=== PATIENT | male | born 1965 | race Caucasian/White ===

== ENCOUNTER 2018-03-01 10:30 | Inpatient (IN) | payer BC ==
--- NOTE | 2018-02-20 20:05 | HP ---
HISTORY AND PHYSICAL: DATE OF ADMISSION/SURGERY: 03/01/18 PROVIDER: Dr. Nita Luna.* (DICTATED BY LEONCIO TIMMONS) HISTORY OF PRESENT ILLNESS: Mr. Blanc is a 52-year-old gentleman with bilateral hip pain that is increasing over many years. His right hip hurts more than his left. Pain is a 4/10, aching, constant, made worse with walking. He has failed conservative management with NSAIDs, physical therapy, intraarticular injections. As of note, he has recently lost over 60 pounds at our urging and would like to schedule a right total hip arthroplasty. PAST MEDICAL HISTORY: 1. Morbid obesity. 2. Hypertension. 3. Hypercholesterolemia. PAST SURGICAL HISTORY: None. MEDICATIONS: 1. Meloxicam 15 mg 1 by mouth every day. 2. Amlodipine 5 mg 1 by mouth every day. 3. Hydrochlorothiazide 25 mg by mouth every day. ALLERGIES: PENICILLIN, unknown reaction. 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 He denies any tobacco, alcohol, or recreational drug use. He is normally active. He ambulates independently and is right-hand dominant. REVIEW OF SYSTEMS: General: The patient denies any fever, chills, or night sweats. No known anesthesia problems. HEENT: The patient denies any headaches , lightheadedness, or syncopal episodes. Cardiothoracic: The patient denies any chest pain, heart palpitations, or edema. Pulmonary: The patient denies any shortness of breath with exertion, chronic cough, COPD, or asthma. GI: The patient denies any nausea, vomiting, diarrhea, or constipation. : The patient denies any nocturia, urinary frequency, or urgency. MSK: The patient denies any chronic or intermittent back pain or fractures. Neuro: The patient denies any paresthesias, numbness, seizures, or stroke. Integument: The patient denies any abrasions, rashes, lumps, or open sores. PHYSICAL EXAMINATION GENERAL: The patient is alert and oriented x3, appropriate mood and affect, appropriate dress and hygiene. He has an antalgic gait and he is in no acute distress. HEENT: Normocephalic, atraumatic. Hearing and vision are grossly intact. PULMONARY: Lungs are clear to auscultation bilaterally with no wheezes, rales, or rhonchi. CARDIO: Regular rate and rhythm. Normal S1 and S2. No appreciable S3 or S4. No murmurs, rubs, or gallops. MUSCULOSKELETAL: Right lower extremity: Inspection of the right hip reveals no erythema or ecchymosis. Skin is warm, dry, and intact. There are no abrasions or open wounds. He has 70 degrees of flexion with extreme pain in the groin. External rotation to 15 degrees and internal rotation to 0 degrees. He has pain with both of those. He can actively flex and abduct the hip, but this causes him pain. He has 5/5 ankle dorsiflexion and plantarflexion strength. Full sensation to light touch. Calves are soft and nontender. 2+ dorsalis pedis pulse. IMPRESSION: Right hip severe end-stage osteoarthritis. PLAN: To the OR for a right total hip arthroplasty to be performed by Dr. Nita Luna on 03/01/18. The patient will follow up 10 to 14 days postop for followup and suture removal. The risks and complications of surgery were reviewed with the patient and he understood these. LEONCIO TIMMONS [id number]/[facility] #: [id number] SUNITA
[~2018-03-01 10:30] MED LIST: Buffered Lidocaine 0.9% SYRIN* 5 ML/SYR SYRINGE INTRADERM ONE; Lactated Ringers 1000 ML Bag* 1,000 ML IV SCH
[2018-03-01] MEDS ORDERED: Clindamycin 900 MG/D5W BAG(*) 900 MG/50 ML BAG IVPB ONE (11:01)
[2018-03-01] MEDS ORDERED: Midazolam* 1 MG/ML 5 ML VIAL (5 MG) ONE ×2 (13:07→13:39)
[2018-03-01] MEDS ORDERED: fentaNYL* 50 MCG/ML 2 ML VIAL (100 MCG VIAL) ONE ×2 (13:27→14:58)
[2018-03-01] MEDS ORDERED: Dexamethasone IV* 4 MG/ML 1 ML (4 MG) ONE (13:40)
[2018-03-01] MEDS ORDERED: fentaNYL* 50 MCG/ML 2 ML VIAL (100 MCG VIAL) IV PRN (14:03)
[2018-03-01] MEDS ORDERED: DiMENhydriNATE IV* 50 MG/ML VIAL IV PUSH PRN (14:03)
[2018-03-01] MEDS ORDERED: Scopolamine 1.5 mg* PATCH TRANSDERM PRN (14:03)
[2018-03-01] MEDS ORDERED: Acetaminophen IV 1GM/100ML * 1,000 MG/100 ML VIAL IVPB ONE (14:03)
[2018-03-01] MEDS ORDERED: oxyCODONE TAB* 5 MG TAB PO PRN ×2 (14:03→16:19)
[2018-03-01] MEDS ORDERED: HYDROmorphone INJ1* 1 MG/ML SYRINGE IV PRN (14:03)
[2018-03-01] MEDS ORDERED: Ondansetron INJ* 2 MG/ML VIAL IV PRN ×2 (14:03→16:19)
[2018-03-01] MEDS ORDERED: Naloxone* 0.4 MG/ML 1 ML VIAL IV PRN (14:03)
[2018-03-01] MEDS ORDERED: EPHEDrine (Pressors)* 50 MG/ML VIAL ONE (14:45)
[2018-03-01] MEDS ORDERED: Phenylephrine INJ* 10 MG/ML 1 ML VIAL (10 MG) ONE (14:45)
[2018-03-01] MEDS ORDERED: Bupivacaine 0.5%* 50 ML VIAL ONE (15:42)
[2018-03-01] MEDS ORDERED: Midazolam* 1 MG/ML 2 ML VIAL (2 MG) ONE (15:46)
[2018-03-01] MEDS ORDERED: Ketorolac INJ* 30 MG/ML 1 ML VIAL ONE (15:46)
[2018-03-01] MEDS ORDERED: Ondansetron INJ* 2 MG/ML VIAL ONE (15:47)
[2018-03-01] MEDS ORDERED: Bisacodyl SUPP* 10 MG SUPP PR PRN (16:19)
[2018-03-01] MEDS ORDERED: Acetaminophen TAB* 325 MG PO PRN (16:19)
[2018-03-01] MEDS ORDERED: Magnesium Hydroxide LIQ* 30 ML UDC PO PRN (16:19)
[2018-03-01] MEDS ORDERED: diPHENhydraMINE IV* 50 MG/ML 1 ml VIAL (BENADRYL) IV PRN (16:19)
[2018-03-01] MEDS ORDERED: oxyCODONE/Acetamin 5/325 MG* TAB PO PRN (16:19)
[2018-03-01] MEDS ORDERED: Cyclobenzaprine TAB* 10 MG PO PRN (16:19)
[2018-03-01] MEDS ORDERED: Morphine VIAL* 4 MG/ML VIAL (1 ml vial) IV PRN (16:19)
[2018-03-01] MEDS ORDERED: Acetaminophen IV 1GM/100ML * 100 ML ONE (16:34)
[2018-03-01] MEDS: Lactated Ringers 1000 ML Bag* 1,000 ML IV SCH (17:50)
[2018-03-01] MEDS: oxyCODONE/Acetamin 5/325 MG* TAB PO PRN (18:17)
[2018-03-01] MEDS ORDERED: amLODIPine TAB* 5 MG PO SCH (18:30)
[2018-03-01] MEDS ORDERED: Warfarin TAB(*) 6 MG PO ONE (18:30)
[2018-03-01] MEDS: Docusate CAP* 100 MG PO SCH (20:29)
[2018-03-01] MEDS: Magnesium Hydroxide LIQ* 30 ML UDC PO SCH (20:30)
[2018-03-01] MEDS: Clindamycin 600 MG IVPREMIX(* 600 MG/50 ML SDV IV SCH (21:25)
--- NOTE | 2018-03-02 01:54 | CONS ---
CC: Dr. Brar; Dr. Luna * CONSULTATION REPORT: DATE OF CONSULT: PRIMARY CARE PROVIDER: Dr. Brar. REQUESTING PHYSICIAN: Dr. Luna. REASON FOR CONSULT: Medical management of the patient's hypertension status post right hip surgery. CHIEF COMPLAINT: Right hip pain. HISTORY OF PRESENT ILLNESS: Abdulaziz Blanc is a 52-year-old male with history of obesity, hypertension, obstructive sleep apnea, who is not tolerating CPAP, who is status post right hip replacement performed by Dr. Luna today. He just walked postoperatively and he felt that his pain postoperative is similar to the pain that he had due to osteoarthritis before. The patient also noted that he has a Caro catheter in place and it was "leaking " on the bed. Otherwise, he has no other complaints. He feels good. Denies shortness of breath or chest pain. A consultation was requested for this patient to manage the patient's hypertension perioperatively. PAST MEDICAL HISTORY: 1. Hypertension. 2. Obstructive sleep apnea, the patient does not tolerate CPAP. 3. History of morbid obesity. The patient stated that he lost approximately 80 pounds in the past 1 year. 4. History of osteoarthritis. MEDICATIONS: Outpatient medications include: 1. Amlodipine 5 mg daily. 2. Acetaminophen on a p.r.n. basis. 3. Hydrochlorothiazide 25 mg daily. 4. Phentermine 30 mg daily that the patient used to be on for his weight loss and discontinued prior to surgery. ALLERGIES: PENICILLINS with unknown reaction. FAMILY HISTORY: Positive for mother with history of bilateral breast cancer as well as diabetes. Father has no known medical problems. 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 He denies any tobacco, alcohol, or drug use. He is a full code. REVIEW OF SYSTEMS: Positive for right hip pain and leaking Caro. All the remaining 12 systems were reviewed with the patient and were otherwise negative. PHYSICAL EXAM: Blood pressure of 101/58, heart rate of 100 and regular, respiratory rate 16, oxygen saturation 97% on room air, temperature 97.9. General: The patient is a pleasant 52-year-old male with a BMI of 41. The patient is not in acute distress. Alert, awake, and oriented x3. HEENT: Head : Atraumatic, normocephalic. Eyes: Pupils are equal, reactive to light and accommodation. Oropharynx is clear. Mucosa moist. Neck: Supple. No JVD. No bruits bilaterally. Cardiovascular: Regular rate and rhythm. No murmur. Respiratory: Clear to auscultation bilaterally. Abdomen: Soft, nontender. Bowel sounds present in all 4 quadrants. Extremities: There is trace bilateral pedal edema. Pulses are +2 bilaterally. No clubbing or cyanosis. On evaluation of the postoperative right hip, the postoperative dressings were not removed. There is no gross hematoma evident on evaluation of the right thigh. Neuro Evaluation: Cranial nerves II through XII grossly intact. Motor strength is 5/5 bilaterally. On evaluation of the skin, no ecchymotic areas or rashes noted. Psychiatric Evaluation: Oriented x3, but no evidence of anxiety or depression. LABORATORY DATA: None obtained today. ASSESSMENT AND PLAN: 1. The patient is postoperative day 0, status post right hip replacement that is going to be managed by Orthopedic Surgery. Due to the patient's complaints of his Caro leaking and that he is currently already ambulatory, I am going to discontinue the Caro tonight. 2. For his hypertension, currently he is normotensive and his systolic blood pressure is around low 100s. Both his amlodipine and hydrochlorothiazide are going to be held. Those will likely be restarted at discharge. 3. For DVT prophylaxis. The orthopedic service already placed the patient on enoxaparin and warfarin. 4. The patient's code status is full and his surrogate is his . TIME SPENT: Approximately 55 minutes were spent on consultation of this patient , more than half that time was spent [id number] with the patient during the interview and physical exam. Thank you very much for allowing me to see your patient in consultation. [id number]/[facility] #: [id number] SUNITA
[2018-03-02] MEDS: oxyCODONE/Acetamin 5/325 MG* TAB PO PRN ×3 (03:51→14:12)
[2018-03-02] MEDS: Lactated Ringers 1000 ML Bag* 1,000 ML IV SCH (03:54)
[2018-03-02] MEDS: Clindamycin 600 MG IVPREMIX(* 600 MG/50 ML SDV IV SCH ×2 (05:17→12:40)
[2018-03-02 05:48] LABS: Hematocrit 31 % (42-52); Hemoglobin 10.7 g/dl (14.0-18.0); Mean Platelet Volume 8.8 fL (7.4-10.4); Platelet Count 198 10^3/ul (150-450)
[2018-03-02 05:51] LABS: INR 1.06 (0.77-1.02)
[2018-03-02 06:05] LABS: BUN/Creatinine Ratio 30.2 (8-20); Calcium 8.8 mg/dL (8.6-10.3); EGFR Non-African American 93.4 (>60)
[2018-03-02] MEDS: Docusate CAP* 100 MG PO SCH (07:51)
[2018-03-02] MEDS: Magnesium Hydroxide LIQ* 30 ML UDC PO SCH (07:51)
--- NOTE | 2018-03-02 08:23 | OP ---
OPERATIVE REPORT: DATE OF OPERATION: 03/01/18 DATE OF : 65 SURGEON: Nita Luna MD. WOOD HEEL FITTER MACHINE: LEONCIO Escamilla. Mr. Villar did help throughout the procedure with preparation of the leg, wound retraction, manipulat ion of the hip, and wound closure. ANESTHESIOLOGIST: Dr. Marr. ANESTHESIA: Spinal. PRE-OP DIAGNOSIS: Severe endstage degenerative osteoarthritis of the right hip joint. POST-OP DIAGNOSIS: Severe endstage degenerative osteoarthritis of the right hip joint. OPERATIVE PROCEDURE: Right total hip arthroplasty. COMPLICATIONS: None. ESTIMATED BLOOD LOSS: 350 cc. SPECIMEN: Femoral head and acetabular reaming sent to pathology. HARDWARE USED: This is [place] uncemented total hip arthroplasty hardware. For the acetabular cup, a Tritanium cluster hole shell 58F and a single 20 mm screw. For the polyethylene, a Trident X3 0-deg ree polyethylene insert 40F. For the stem, an Accolade II, size 7 with a 127-degree neck. For the h ead a Biolox delta ceramic V40 femoral head with -2.5 adapter sleeve. BRIEF HISTORY/INDICATIONS: Mr. Blanc is a 52-year-old gentleman with years of increasingly severe right hip pain. He has failed conservative treatment with antiinflammatories, pain medication, intra articular injection, and physical therapy. Radiographs showed [id number] arthritis. Due to contin ued pain and decreased quality of life, he elected to undergo a right total hip arthroplasty. Informe d consent was obtained from the patient. He understood the risks of surgery included, but were not l imited to bleeding, infection, damage to nearby structures, continued pain, need for further surgery, intraoperative fracture, nerve palsy, hardware failure or loosening, dislocation, leg length discrep korina, stroke, heart attack, blood clot, and . He wished to proceed. INTRAOPERATIVE FINDINGS: Intraoperatively, the patient was noted to have severe contracture and loss of motion around the hip joint. He had complete loss of cartilage with deformation of the femoral h ead. He had extensive osteophyte formation. DESCRIPTION OF PROCEDURE: Erin Blanc was identified in the preanesthesia unit. His right lower extr emity was marked as the correct operative side. Informed consent was signed and placed in the chart. The patient was taken to the operating room and placed under spinal anesthesia. A Caro catheter w as placed. The patient was placed in the left lateral decubitus position with all bony prominences w ell padded. Right lower extremity was prepped and draped in the usual sterile fashion. Preop time-ou t was made to correctly identify the patient, side, and site. Appropriate perioperative antibiotics w ere given within 1 hour of incision. A standard posterior hip incision was made with 10 blade and carried down to the lateral fascia layer . The lateral fascial layer was then incised in line with the skin incision. A Charnley retractor w as placed. The piriformis and conjoint tendons were identified and elevated off the posterolateral f emur using electrocautery. These were tagged with #5 Ethibond. Next, electrocautery was used to chaya e a standard posterolateral capsular flap and this was also tagged with #5 Ethibond. The hip was car efully dislocated. Lesser troch to center of the femoral head measured 62 mm. Oscillating saw was u sed to make the femoral neck cut. The femoral head was carefully removed. The femur was retracted anteriorly. After appropriate placement of retractors, the acetabulum was we ll visualized. There was extensive osteophyte formation noted. A long handled knife was used to sha rply remove any remaining labrum from the acetabular rim. The acetabulum was sequentially reamed up to a size 57. The 57 reamer had established a bleeding subchondral bone bed. The 57 trial had excel lent fit and stability. Final implant chosen was a Tritanium cluster hole shell 58F. This was impact ed into the acetabulum without difficulty. There was excellent stability of the cup with appropriate anteversion and abduction angle. A single 20 mm screw was placed in the superoposterior quadrant fo r extra stability. Next, the liner was chosen. The final implant chosen was a Trident X3 polyethyle ne liner with 0-degree and 40F. This was impacted into the acetabulum. Stability of the liner was c hecked and rechecked and noted to be stable. Attention was next turned to preparation of the femoral canal. A canal finder was used to enter the proximal femur. The proximal femur was sequentially broached up to a size 7. A size 7 broach had ex cellent fit and stability with appropriate anteversion. A 127 neck trial with a 40+ 0 head trial was placed. Lesser troch to center of the femoral head measured 65 mm. Therefore, a -2.5 head was chos en. Lesser troch to center of the femoral head measured 62 mm. The hip was reduced and taken through a range of motion. The hip was stable in all positions. There was good soft tissue tension and germania ropriate leg length. The hip was dislocated. All trials were removed. Final implant chosen was an Accolade II, size 7 with a 127-degree neck angle. This was impacted into the femoral canal without difficulty. The stem was stable with appropriate anteversion. A Biolox d elta ceramic V40 femoral head was chosen with - 2.5 adapter sleeve. This was impacted onto the femor al neck. The hip was reduced and taken through a range of motion. The hip was stable in all positio ns with good soft tissue tension and appropriate leg lengths. The wound was copiously irrigated with sterile saline. The previously tagged tendons and capsules were reapproximated to the posterolateral femur through 2 trochanteric drill holes. Lateral fascia layer was closed using interrupted #1 Vicryls. The rest of the incision was closed in a layered fashion using 0 and 2-0 Vicryls. Skin was closed using running 3-0 Monocryl suture. This was covered with Dermabond. Sterile Adaptic, 4x4s, and paper tape were u sed to cover the incision. The patient's anesthesia was reversed without difficulty. She was taken to the PACU in stable condition. Intended weightbearing will be weightbearing as tolerated. Intende d DVT prophylaxis will be Eliqutashi. [id number]/[facility] #: [id number]
--- NOTE | 2018-03-02 08:47 | PN ---
Progress Note - Progress Note Date of Service: 03/03/18 SOAP: Subjective: []Patient seen OOB in chair, family member present. He feels he did well with therapy and his pain is under good control with Percocet. He feels he would like to go home this afternoon. Objective: [] Vital Signs Temp 98.4 F 03/02/18 08:04 Pulse 88 03/02/18 07:28 Resp 18 03/02/18 07:52 BP 121/64 03/02/18 07:28 Pulse Ox 100 03/02/18 07:28 Intake & Output 03/01/18 03/02/18 03/02/18 18:59 06:59 18:59 Intake Total 3300 2232 Output Total 200 500 Balance 3100 1732 Weight 302 lb Intake: IV Fluids 3300 932 CLINDAMYCIN 900 MG 50 LR 3250 932 Oral 1300 Output: Urine 250 Caro 200 250 Laboratory Results - last 24 hr 03/02/18 03/02/18 03/02/18 05:31 05:31 05:31 Hgb 10.7 L Hct 31 L Plt Count 198 MPV 8.8 INR (Anticoag Therapy) 1.06 H Sodium 133 L Potassium 4.0 Chloride 102 Carbon Dioxide 23 Anion Gap 8 BUN 26 H Creatinine 0.86 Est GFR ( Amer) 113.0 Est GFR (Non-Af Amer) 93.4 BUN/Creatinine Ratio 30.2 H Glucose 113 H Calcium 8.8 Right hip dressings are dry and intact, removed, wound benign, 4x4s and tape applied. thigh swelling minimal, soft calf NT and soft active DF/PF right ankle sensation intact distally Assessment: []s/p Right total hip arthroplasty POD #1 Plan: []PT/OT today, WBAT RLE Eliquis for DVT prophylaxis at discharge Follow up in 10-14 days as scheduled with Dr. Luna
[2018-03-02] MEDS ORDERED: Hydrochlorothiazide TAB* 25 MG PO SCH (09:00)
--- NOTE | 2018-03-02 11:25 | DS ---
AMENDED REPORT NOW INCLUDES DESIGNATED COSIGNER DISCHARGE SUMMARY: DATE OF ADMISSION: 03/01/18 DATE OF DISCHARGE: 03/02/18 ATTENDING PHYSICIAN: Dr. Nita Luna.* (DICTATED BY LEONCIO FUENTES) ADMISSION DIAGNOSIS: Severe end-stage degenerative osteoarthritis of the right hip. DISCHARGE DIAGNOSIS: Severe end-stage degenerative osteoarthritis of the right hip. SURGERY PERFORMED: Right total hip arthroplasty. HOSPITAL COURSE: The patient is a 52-year-old male who developed increasingly severe right hip pain over several years. He failed conservative management with antiinflammatories, pain medication, intraarticular cortisone injections and physical therapy. His plain films revealed bone on bone degenerative arthritis. Due to increased pain and decreased quality of life, the patient decided to proceed with right total hip arthroplasty. He was taken to the operating room under the care of Dr. Nita Luna on the date of 03/01/18. He tolerated the procedure well and left the operating room in stable condition. Postoperatively, he progressed very well with his physical therapy and occupational therapy goals, bearing weight as tolerated on the right lower extremity. He had no postoperative complications and felt he was doing well enough to go home on postop day 1 evening. He will have visiting home nursing services in place. PHYSICAL EXAMINATION: At the time of discharge, reveals a well healing right hip incision. His dressings were changed today. His calf is soft and nontender. His neurovascular status is intact. Vital signs show temperature of 98.4, pulse 99, respiratory rate 17, O2 saturations of 100% on room air, BP 121/64. PLAN: The patient will be discharged to home after his afternoon physical therapy session today, 03/02/18. He will use Eliquis 2.5 mg p.o. b.i.d. for 30 days for DVT prophylaxis. He was provided with a prescription of Percocet 5/ 325 one to two tablets p.o. q.4 hours p.r.n. pain and Flexeril 5 mg p.o. t.i.d. p.r.n. muscle spasm. All of these medications were sent to the bedside with [facility], Meds to Beds service. He will follow up as scheduled in the office with Dr. Luna in roughly 10 to 14 days. All questions were answered. LEONCIO FUENTES [id number]/[facility] #: [id number] [facility]PITAL[facility]avier
[2018-03-02 11:26] VITALS: BP 116/67
[2018-03-02] MEDS ORDERED: Enoxaparin(*) 40 MG/0.4 ML SYR SUBCUT SCH (12:00)
== END 2018-03-02 14:40 | disposition home health service (06) | DRG 301 ==
LOC: AA 10:30 → SSU 16:19
PROVIDERS: ADMIT Orthopaedic Surgery Adult Reconstructive Orthopaedic Surgery; ATTEND Orthopaedic Surgery Adult Reconstructive Orthopaedic Surgery
PROC: 0SR904A Replacement of Right Hip Joint with Ceramic on Polyethylene Synthetic Substitute, Uncemented, Open Approach (ICD-10-PCS; principal; 2018-03-01 12:45)
DX: M16.11 Unilateral primary osteoarthritis, right hip (principal); Z68.41 Body mass index [BMI] 40.0-44.9, adult; E66.01 Morbid (severe) obesity due to excess calories; I10 Essential (primary) hypertension; M24.551 Contracture, right hip; M25.751 Osteophyte, right hip; E78.00 Pure hypercholesterolemia, unspecified; G89.29 Other chronic pain; M54.41 Lumbago with sciatica, right side; E03.9 Hypothyroidism, unspecified; G47.33 Obstructive sleep apnea (adult) (pediatric); Z83.3 Family history of diabetes mellitus; Z80.3 Family history of malignant neoplasm of breast; Z88.0 Allergy status to penicillin
CPT/HCPCS: 36415; 72170; 80048; 85014; 85018; 85049; 85610; A9270-GY; J1100; J1650; J1885; J2250; J2405; J3010

== ENCOUNTER 2019-02-25 08:43 | Inpatient (IN) | payer BC ==
--- NOTE | 2019-02-18 12:31 | HP ---
HISTORY AND PHYSICAL: DATE OF ADMISSION/SURGERY: 02/25/19 DATE OF OFFICE VISIT: 02/17/19 SURGEON: Nita Luna MD * (DICTATED BY LEONCIO DANIELSON) PROCEDURE: Left total hip arthroplasty. CHIEF COMPLAINT: Left hip pain. HISTORY OF PRESENT ILLNESS: Mr. Blanc is a 53-year-old gentleman with continued complaints of left hip pain. He has failed conservative treatment and elected to proceed with a left total hip arthroplasty. PAST MEDICAL HISTORY: Hypertension, high cholesterol. PAST SURGICAL HISTORY: Right total hip arthroplasty. CURRENT MEDICATIONS: 1. Amlodipine 5 mg a day. 2. Hydrochlorothiazide 25 mg a day. ALLERGIES: PENICILLIN. FAMILY HISTORY: Cancer. SOCIAL HISTORY: A 53-year-old gentleman lives with his . He does not smoke , use drugs, or alcohol. REVIEW OF SYSTEMS: A complete 14-point review of systems was reviewed with the patient and is all negative and noncontributory. PHYSICAL EXAMINATION GENERAL: He is well developed, well nourished, in no acute distress. VITAL SIGNS: He stands 6 feet tall, weighs 320 pounds, blood pressure is 138/82 , heart rate is 76. HEENT: Normocephalic, atraumatic. NECK: Supple. No palpable lymph nodes. PULMONARY: Lungs are clear to auscultation bilaterally. CARDIO: Regular rate and rhythm. Strong S1 and S2. ABDOMEN: Soft, nontender, nondistended. NEUROLOGICAL: He is alert and oriented x3. MUSCULOSKELETAL: Left lower extremity: Skin is intact. There are no open wounds or abrasions. He walks with an antalgic type gait favoring his left hip. He has 80 degrees of hip flexion. He lags 10 degrees to neutral. He has 0 degrees of internal rotation, 20 degrees of external rotation. He is able to dorsiflex and plantar flex. He has 2+ dorsalis pedis pulses. Intact sensation. ASSESSMENT AND PLAN: Mr. Blanc is 53-year-old gentleman with end-stage osteoarthritis of the left hip. He has failed conservative treatment and elected to proceed with a left total hip arthroplasty. The surgery is scheduled for 02/25/[address] Luna discussed the risks and benefits of the surgery at today's visit and all of his questions were answered. He will follow with Dr. Jeremy 2 weeks after the surgery. LEONCIO DANIELSON [id number]/[facility] #: [id number] SUNITA
[~2019-02-25 08:43] MED LIST changes: -Buffered Lidocaine 0.9% SYRIN* 5 ML/SYR SYRINGE INTRADERM ONE; +Buffered Lidocaine 1% SYRIN* 1 ML/SYRINGE INTRADERM ONE; +Tranexamic Acid 1,000 MG in NS 0.9% 50 ML* (outpatient use) IV SCH
[2019-02-25] MEDS ORDERED: ceFAZolin 1 GM ADVAN(*) 1 GM ADDV.VIAL IVPB ONE (09:22)
[2019-02-25] MEDS ORDERED: Buffered Lidocaine 1% SYRIN* 1 ML/SYRINGE INTRADERM ONE (09:23)
[2019-02-25] MEDS ORDERED: ceFAZolin 2 GM in NS PREMIX(*) 2 GM/100 ML BAG IVPB ONE (09:23)
[2019-02-25] MEDS ORDERED: Midazolam* 1 MG/ML 5 ML VIAL (5 MG) ONE (10:33)
[2019-02-25] MEDS ORDERED: fentaNYL* 50 MCG/ML 2 ML VIAL (100 MCG VIAL) ONE (10:33)
[2019-02-25] MEDS ORDERED: Propofol* 10 MG/ML 20 ML BTL ONE ×2 (11:35→13:01)
[2019-02-25] MEDS ORDERED: Bupivacaine 0.5% SDV PF* 30ML VIAL ONE (11:54)
[2019-02-25] MEDS ORDERED: Phenylephrine 40 MCG/ML SYRINGE ONE (11:59)
[2019-02-25] MEDS ORDERED: EPHEDrine (Pressors)* 50 MG/ML VIAL ONE (12:21)
[2019-02-25] MEDS ORDERED: HYDROcodone/ACETAMIN 5-325 MG* 1 TAB PO PRN (13:12)
[2019-02-25] MEDS ORDERED: Naloxone* 0.4 MG/ML 1 ML VIAL IV PRN (13:12)
[2019-02-25] MEDS ORDERED: HYDROmorphone INJ1* 1 MG/ML SYRINGE IV PRN (13:12)
[2019-02-25] MEDS ORDERED: Acetaminophen TAB* 325 MG PO PRN ×2 (13:12→14:36)
[2019-02-25] MEDS ORDERED: Ondansetron INJ* 2 MG/ML VIAL IV PRN ×2 (13:12→14:36)
[2019-02-25] MEDS ORDERED: Cyclobenzaprine TAB* 10 MG PO PRN (14:36)
[2019-02-25] MEDS ORDERED: Ondansetron ODT TAB* 4 MG PO PRN (14:36)
[2019-02-25] MEDS ORDERED: oxyCODONE/Acetamin 5/325 MG* TAB PO PRN (14:36)
[2019-02-25] MEDS ORDERED: Morphine INJ* 2 MG/ML 1 ML SYRINGE (TWO MG - NEW SYRINGE VERSION) IV PRN (14:36)
[2019-02-25] MEDS ORDERED: diPHENhydraMINE PO* 25 MG PO PRN (14:36)
[2019-02-25] MEDS ORDERED: Magnesium Hydroxide LIQ* 30 ML UDC PO PRN (14:36)
[2019-02-25] MEDS ORDERED: diPHENhydraMINE IV* 50 MG/ML 1 ml VIAL (BENADRYL) IV PRN (14:36)
[2019-02-25] MEDS ORDERED: Calcium Carbonate CHEW TAB* 500 MG (TUMS) PO PRN (14:42)
[2019-02-25] MEDS ORDERED: Lactated Ringers 1000 ML Bag* 1,000 ML IV SCH (15:00)
[2019-02-25] MEDS ORDERED: HYDROcodone/ACETAMIN 5-325 MG* 1 TAB ONE (15:18)
--- NOTE | 2019-02-25 17:14 | PN ---
Progress Note - Progress Note Date of Service: 02/25/19 Note: OOB to chair, pain well controlled. Patient already walked halls, doing very well; 2+ DP pulse, intact sensation; dressing c/d/i
[2019-02-25] MEDS: oxyCODONE TAB* 5 MG TAB PO PRN (17:42)
[2019-02-25] MEDS ORDERED: amLODIPine TAB* 5 MG PO SCH ×2 (18:00→21:00)
--- NOTE | 2019-02-25 19:09 | OP ---
Operative Report - Blank - Operative Report Date of Operation: 02/25/19 Note: REGINALDO SOTO 1965 Date Of Surgery: 02/25/19 Nita Luna MD Electric Power Line Repairer: Tung FANG did help throughout the procedure with preparation of the hip, wound retraction, manipulation of the hip, and wound closure. Anesthesiologist: Dr. Basilio Anesthesia Type: Spinal Preoperative Diagnosis: Left severe degenerative osteoarthritis of the hip Postoperative Diagnosis: As above Procedure Performed: Left Total Hip Arthroplasty with modifier for morbid obesity/complexity of case with added time Complications: None Specimen: Femoral head and acetabular reamings sent to pathology. Hardware used: This is uncemented Michaela total hip arthroplasty hardware for the femur a size 8 accolade II with 127 neck angle femoral component, for the acetabulum a size 56F trident II tritanium cluster hole shell, a single 20 mm screw, for the insert a size 40F trident X3 polyethylene insert, and for the femoral head a size 40 - 2.5 biolox ceramic V40 femoral head. Brief history/Indication: REGINALDO SOTO was known in clinic and had a history of severe left hip pain. He failed conservative treatment with anti- inflammatories, pain pills, intra-articular injections and physical therapy. He elected to undergo left total hip arthroplasty due to continued pain and decreased quality of life. Radiographs showed severe end stage osteoarthritis of the hip with bone on bone contact. Informed consent was obtained from the patient. He understood the risks of surgery included but were not limited to: bleeding, infection, damage to nearby structures, intraoperative fracture, nerve palsy, failure of the hardware, early loosening, stiffness or loss of motion, dislocation, leg length discrepancy, anesthesia complications, stroke, heart attack, blood clot and . He wished to proceed. Intra-Operative findings: Intraoperatively the patient was noted to have severe loss of cartilage of the acetabulum and femoral head. Due to the patient's body habitus, at least 45 minutes additional operative time was added to the case. Description of the Procedure: REGINALDO SOTO was identified in the preanesthesia unit. His left hip was marked as the correct operative side. Informed consent was signed and placed in the chart. The patient was taken to the operating room and placed under anesthesia without complication. A trevizo catheter was placed. The patient was placed on the peg board with all bony prominences well padded. The left lower extremity was prepped and draped in the usual sterile fashion. Preoperative time -out was made to correctly identify the patient, side and site. Appropriate intraoperative antibiotics were given within one hour of incision. A standard posterior incision was made and carried sharply down to the lateral fascia. There was at least 6 cm of subcutaneous fat. A new 10 blade was used to make an incision in the fascia in line with the skin incision. A charnley retractor was placed. The piriformis and conjoined tendons were identified and elevated off the posterolateral femur using electrocautery. These were tagged with number 5 Ethibond. Next electrocautery was used to make a posterolateral capsular flap and this was tagged with number 5 Ethibonds. The entire exposure was made more complex due to the patient's morbidly obese body habitus. The hip was carefully dislocated. Lesser trochanter to the center of the femoral head was measured at 65 mm. The oscillating saw was used to make the femoral neck cut. The femoral head was carefully removed. The femur was retracted anteriorly and the acetabular retractors were placed. Long-handled knife was used to sharply remove any remaining labrum from the acetabular rim. The acetabulum was sequentially reamed up to a size 56. A bleeding subchondral bone bed was obtained. A trial liner was placed and had excellent fit and stability. A 56F cup with one screw was placed and had excellent stability with appropriate anteversion and abduction angle. A size 40F polyethylene liner was impacted into the acetabular shell. The liner was checked for stability and was stable. Next attention was turned to preparation of the femoral canal. A canal finder was used to enter the proximal femur. The femoral canal was sequentially broached up to a size 8 femoral broach trial. A trial neck and 40 - 2.5 trial femoral head was chosen. Lesser trochanter to center of the femoral head measurement was satisfactory. The hip was reduced and taken through a range of motion. The hip was stable in all positions with good soft tissue tension and appropriate leg lengths. The hip was dislocated and all trials were removed. The final implant chosen was a accolade size 8. This stem was impacted into the femoral canal without difficulty. The stem was stable with appropriate anteversion. The femoral head chosen was a 40 - 2.5 ceramic head. The head was impacted onto the femoral neck without difficulty. The final lesser trochanter to center of the femoral head measurement was satisfactory. The hip was reduced and taken through a range of motion. The hip was stable in all positions with good soft tissue tension and appropriate leg lengths. The hip was copiously irrigated with sterile saline. The previously tagged capsule and tendons were repaired to the posterolateral femur through two trochanteric drill holes. The lateral fascia layer was closed using number 1 vicryls. The rest of the incision was closed in a layered fashion using 0 and 2-0 vicryls. The skin was closed using 3-0 monocryl suture and Dermabond. Closure of the wound was complex due to the length and the adipose layers. Sterile adaptic, 4x4s and paper tape was used to cover the incision. The patients anesthesia was reversed without difficulty. He was taken to the PACU in stable condition. Intended weight-bearing will be as tolerated with posterior hip precautions.
--- NOTE | 2019-02-25 19:15 | CONS ---
CONSULTATION REPORT: DATE OF CONSULT: 02/25/19 CONSULTING PROVIDER: Faisal Dietz MD REQUESTING SERVICE/PRIMARY: Dr. Luna of Orthopedics. REASON FOR CONSULT: Medical co-morbidities in the setting of elective left total hip replacement, namely hypertension. HISTORY OF PRESENT ILLNESS: Abdulaziz Blanc is a 53-year-old male with past medical history of hypertension; hyperlipidemia; hip osteoarthritis, status post right total hip and now left total hip today. He has been recuperating well, complaining of approximately 5/10 pain, has been ambulating already. He still has a Caro catheter. He has been on antihypertensive medications since April 2017. He held his medications this a.m. Blood pressures have been in the 130s to 140s post surgery. MEDICATIONS: Include: 1. Amlodipine 5 mg daily. 2. Hydrochlorothiazide 25 mg p.o. daily. ALLERGIES: PENICILLIN. FAMILY HISTORY: Cancer. SOCIAL HISTORY: The patient is a nonsmoker, never a drinker. Works in construction, does not get any chest pains or shortness of breath with that. REVIEW OF SYSTEMS: A complete 14-point review of systems negative except as per HPI. He does snore and has fractured sleep due to hip pain. No stomach pain. No fevers, chills, nausea, vomiting, or diarrhea. PHYSICAL EXAM: General Appearance: No acute distress. Vital Signs: Temperature 97.0, heart rate 82, pulse ox 99%, blood pressure 141/89. HEENT: Normocephalic , atraumatic. Pupils are equal, round, and reactive to light. Extraocular motions intact. No scleral icterus. Lungs: Clear to auscultation bilaterally with no wheezing, rales, or rhonchi. Cardiovascular: Regular rate and rhythm. No murmurs, rubs, or gallops. Abdomen: Soft, nontender, nondistended. Extremities: Warm, well perfused. No peripheral edema. There is an incision with clean, dry, and intact bandages on the left hip. No significant hematoma observed. DIAGNOSTIC STUDIES/LAB DATA: Labs: None. Imaging: Pelvis x-ray demonstrated postoperative changes. Hip x-ray: Also postoperative changes. ASSESSMENT AND PLAN: Abdulaziz Blanc is a 53-year-old male with past medical history of hypertension and hyperlipidemia (diet controlled), on amlodipine and hydrochlorothiazide, recuperating well from his elective left total hip replacement. We would recommend continuing his amlodipine 5 mg tonight and holding his hydrochlorothiazide for now in the setting of pain medications, but can restart in the a.m. other management of postoperative pain control, DVT prophylaxis, and bowel regimen as per Orthopedics. He is notably on Eliquis 2.5 mg p.o. b.i.d. I do recommend the patient if he still has fractured sleep at night even after his left total hip replacement to pursue a sleep study given his snoring and neck girth, his BMI is 43.6, to rule out sleep apnea. Thank you for this interesting consult. [id number]/[facility] #: [id number] SUNITA
[2019-02-25] MEDS: Clindamycin 600 MG/D5W BAG(*) 600 MG/50 ML BAG IV SCH (20:46)
[2019-02-25] MEDS: oxyCODONE/Acetamin 5/325 MG* TAB PO PRN (21:15)
[2019-02-25] MEDS: Docusate CAP* 100 MG PO SCH (21:16)
[2019-02-25] MEDS: Magnesium Hydroxide LIQ* 30 ML UDC PO SCH (21:17)
[2019-02-26] MEDS: oxyCODONE TAB* 5 MG TAB PO PRN ×2 (00:33→08:29)
[2019-02-26] MEDS: oxyCODONE/Acetamin 5/325 MG* TAB PO PRN ×2 (04:12→11:53)
[2019-02-26] MEDS: Clindamycin 600 MG/D5W BAG(*) 600 MG/50 ML BAG IV SCH ×2 (04:14→11:54)
[2019-02-26 06:29] LABS: Hematocrit 33 % (42-52); Hemoglobin 11.5 g/dL (14.0-18.0); Mean Platelet Volume 8.2 fL (7.4-10.4); Platelet Count 169 10^3/uL (150-450)
[2019-02-26 06:43] LABS: BUN/Creatinine Ratio 20.3 (8-20); Calcium 8.4 mg/dL (8.6-10.3); EGFR African American 124.1 (>60); EGFR Non-African American 102.6 (>60); Potassium 3.4 mmol/L (3.5-5.0)
--- NOTE | 2019-02-26 08:25 | PN ---
Progress Note - Progress Note Date of Service: 02/26/19 SOAP: Subjective: []Pt seen at bedside. He feels well without CP, SOB, dizziness or nausea. Hip pain is well controlled. He will have radiation this afternoon for heterotopic ossification, Pelvis CT was done this morning. Objective: []Gen: NAD, appears well LLE: Dressing CDI, thigh soft, DF/PF intact, DP2+, sensation intact to light touch distally Calves supple and nontender without erythema, edema or palpable cords Assessment: []Left total hip replacement Plan: []WBAT PT/OT Posterior hip precautions repeat BMP tomorrow for hyponatremia, hypokalemia. Held HCTZ, can be restarted by medicine as appropriate. Potassium 20 meq q 12 hr. Vital Signs Temp 99 F 02/26/19 08:30 Pulse 90 02/26/19 08:30 Resp 16 02/26/19 08:30 BP 142/82 02/26/19 08:30 Pulse Ox 96 02/26/19 08:30 Intake & Output 02/25/19 02/26/19 02/26/19 18:59 06:59 18:59 Intake Total 3060 1300 Output Total 375 1000 Balance 2685 300 Weight 321 lb 6.4 oz Intake: IV Fluids 2700 LR 2700 Oral 360 1300 Output: Caro 225 1000 Estimated Blood Loss 150 Other: # Bowel Movements 0 Laboratory Last Values Hgb 11.5 g/dL (14.0-18.0) L 02/26/19 06:19 Hct 33 % (42-52) L 02/26/19 06:19 Plt Count 169 10^3/uL (150-450) 02/26/19 06:19 MPV 8.2 fL (7.4-10.4) 02/26/19 06:19 Sodium 132 mmol/L (135-145) L 02/26/19 06:19 Potassium 3.4 mmol/L (3.5-5.0) L 02/26/19 06:19 Chloride 100 mmol/L (101-111) L 02/26/19 06:19 Carbon Dioxide 26 mmol/L (22-32) 02/26/19 06:19 Anion Gap 6 mmol/L (2-11) 02/26/19 06:19 BUN 16 mg/dL (6-24) 02/26/19 06:19 Creatinine 0.79 mg/dL (0.67-1.17) 02/26/19 06:19 Est GFR ( Amer) 124.1 (>60) 02/26/19 06:19 Est GFR (Non-Af Amer) 102.6 (>60) 02/26/19 06:19 BUN/Creatinine Ratio 20.3 (8-20) H 02/26/19 06:19 Glucose 115 mg/dL (70-100) H 02/26/19 06:19 Calcium 8.4 mg/dL (8.6-10.3) L 02/26/19 06:19 Blood Type O Positive 02/25/19 09:46 Antibody Screen Negative 02/25/19 09:46
[2019-02-26] MEDS: Magnesium Hydroxide LIQ* 30 ML UDC PO SCH (08:30)
[2019-02-26] MEDS: Docusate CAP* 100 MG PO SCH (08:30)
[2019-02-26] MEDS ORDERED: Vitamin THERAPEUTIC TAB PO SCH (09:00)
[2019-02-26] MEDS ORDERED: Potassium Chlor TAB* 20 MEQ TAB.ER PO SCH (09:00)
[2019-02-26] MEDS ORDERED: Hydrochlorothiazide TAB* 25 MG PO SCH (09:00)
[2019-02-26] MEDS ORDERED: Apixaban* 2.5 MG TAB PO SCH (09:00)
--- NOTE | 2019-02-26 14:41 | PN ---
Subjective Date of Service: 02/26/19 Interval History: Pt currently off the floor for radiation treatment. K 3.4, Na 132. His hydrochlorothiazide 25mg was held, got amlodipine 5. BP 142/ 82. Pt wanting to be discharged. Would hold HCTZ until can follow-up with PCP. Continue amlodipine. Objective Active Medications: Acetaminophen (Tylenol Tab*) 650 mg PO Q8HR PRN PRN Reason: MILD PAIN or TEMP > 100.4 Amlodipine Besylate (Norvasc Tab*) 5 mg PO 2100 [facility] Last Admin: 02/25/19 21:16 Dose: 5 mg Apixaban (Eliquis*) 2.5 mg PO BID [facility] Last Admin: 02/26/19 08:30 Dose: 2.5 mg Bisacodyl (Dulcolax Supp*) 10 mg FL DAILY PRN PRN Reason: CONSTIPATION Calcium Carbonate (Tums*) 500 mg PO BID PRN PRN Reason: INDIGESTION Cyclobenzaprine HCl (Flexeril Tab*) 10 mg PO Q6H PRN PRN Reason: SPASMS Diphenhydramine HCl (Benadryl Iv*) 25 mg IV Q6H PRN PRN Reason: PRURITIS Diphenhydramine HCl (Benadryl Po*) 25 mg PO Q6H PRN PRN Reason: PRURITIS Docusate Sodium (Colace Cap*) 100 mg PO BID [facility] Last Admin: 02/26/19 08:30 Dose: 100 mg Lactated Ringer's (Lactated Ringers 1000 Ml Bag*) 1,000 mls @ 100 mls/hr IV PER RATE [facility] Last Admin: 02/26/19 02:47 Dose: 100 mls/hr Lactulose (Lactulose*) 30 ml PO BID PRN PRN Reason: CONSTIPATION Magnesium Hydroxide (Milk Of Magnesia Liq*) 30 ml PO BID [facility] Last Admin: 02/26/19 08:30 Dose: 30 ml Magnesium Hydroxide (Milk Of Magnesia Liq*) 30 ml PO Q6H PRN PRN Reason: CONSTIPATION Morphine Sulfate (Morphine Inj (Syringe))*) 2 mg IV Q4H PRN PRN Reason: Pain - Unrelieved Multivitamins (Theragran Tab*) 1 tab PO DAILY [facility] Last Admin: 02/26/19 08:30 Dose: 1 tab Ondansetron HCl (Zofran Inj*) 4 mg IV Q6H PRN PRN Reason: NAUSEA Ondansetron HCl (Zofran Odt Tab*) 4 mg PO Q6H PRN PRN Reason: NAUSEA Oxycodone HCl (Roxycodone Tab*) 10 mg PO Q4H PRN PRN Reason: Pain - Breakthrough Last Admin: 02/26/19 08:29 Dose: 10 mg Oxycodone/Acetaminophen (Percocet 5/325 Tab*) 1 tab PO Q4H PRN PRN Reason: PAIN - MODERATE Oxycodone/Acetaminophen (Percocet 5/325 Tab*) 2 tab PO Q4H PRN PRN Reason: PAIN - SEVERE Last Admin: 02/26/19 11:53 Dose: 2 tab Potassium Chloride (Klor Con Er Tab*) 20 meq PO BID [facility] Last Admin: 02/26/19 09:50 Dose: 20 meq Vital Signs - 8 hr 02/26/19 02/26/19 02/26/19 08:00 08:29 08:30 Temperature 99 F Pulse Rate 90 Respiratory 16 18 16 Rate Blood Pressure 142/82 (mmHg) O2 Sat by Pulse 96 96 Oximetry 02/26/19 02/26/19 02/26/19 11:53 12:01 14:32 Temperature 97.7 F Pulse Rate 91 Respiratory 18 16 18 Rate Blood Pressure 126/72 (mmHg) O2 Sat by Pulse 95 Oximetry Oxygen Devices in Use Now: None Result Diagrams: 02/26/19 06:19 02/26/19 06:19 Assess/Plan/Problems-Billing Assessment:
[2019-02-26 16:03] VITALS: BP 129/71
--- NOTE | 2019-02-26 16:21 | DS ---
Orthopedic Discharge Summary - Discharge Summary Date of Admission:02/25/19 Date of Discharge: 02/26/19 Date of Surgery: 02/25/19 Attending Orthopedic Provider: Dr uLna Pre-operative Diagnosis: Left hip osteoarthritis Operative Procedure: left total hip replacement Disposition of Patient: home with outpatient PT Condition of Patient: stable History: REGINALDO SOTO is a 53 year old M with years of increasingly severe left hip pain. Patient has failed conservative management and has elected to undergo a left total hip replacement Hospital Course: REGINALDO was admitted to [facility] on 02/25/19. Patient underwent a left total hip replacement without complication followed by a brief recovery in PACU and transfer to the Short Stay Surgical Unit in stable condition. Our hospitalist service, physical therapy and occupational therapy also participated in this patients care. Post-op day 1: patient was alert and in no acute distress. Dressing was clean, dry and intact. Operative extremity dorsiflexion and plantarflexion intact, sensation intact to light touch distally , DP2+. Prior to DC: dressing was changed, incision was clean, dry and intact. Patient was deemed to be medically and orthopedically stable for discharge. Physical therapy goals were met. Per medicine he is to hold his hydrocholorothiazide until follow up with his PCP which should be within 1 week for BP check, repeat BMP in 1 week. Home Medications Medication Instructions Recorded Confirmed Type Hydrochlorothiazide TAB* 25 mg PO QAM 02/19/18 02/25/19 History Hydrodiuril TAB* amLODIPine TAB* [Norvasc 5 mg TAB*] 5 mg PO QPM 02/19/18 02/25/19 History Calcium Carbonate CHEW TAB* [Tums*] 500 mg PO BID PRN 02/17/19 02/25/19 History Acetaminophen TAB* [Tylenol TAB*] 650 mg PO Q8HR PRN tab 02/26/19 Rx Apixaban* [Eliquis*] 2.5 mg PO BID #60 tab 02/26/19 Rx Docusate CAP* [Colace Cap*] 100 mg PO BID PRN #90 cap 02/26/19 Rx oxyCODONE/Acetamin 5/325 MG* 1 tab PO Q4H PRN tab 02/26/19 Rx [Percocet 5/325 TAB*] oxyCODONE/Acetamin 5/325 MG* 2 tab PO Q4H PRN #70 tab MDD 10 02/26/19 Rx [Percocet 5/325 TAB*] Discharge Instructions following Orthopedic Surgery: Activity: * Weight Bearing as tolerated * Continue physical therapy and occupational therapy exercises as shown * Start outpatient physical therapy Hip replacements: Continue Hip Precautions- do not cross legs or bend greater than 90 degrees/squat Wound care: * OK to shower on post-op day 3, no bathing, swimming, or submerging wound. * Use gentle soap, pat dry. Cover with gauze, AAYUSH wrap or tape. Call Orthopedic office for: * Increased drainage * Redness * Increased pain * Fever Go to ER with shortness of breath or chest pain. Diet: * Regular diet * Increase fluids and fiber to prevent constipation. * Continue to use stool softeners, call office if no bowel motion within 48 hours. Medications See Home Medication List in your packet for medications that you should take after discharge. DVT Prophylaxis: Eliquis Dosin.5 mg, 1 tab every 12 hours x 30 days. Increases bleeding risk Pain Control: Percocet Dosin/325 mg 1-2 tabs by mouth every 4-6 hours as needed for pain. Maximum of 10 tabs per day. WEan off as soon as pain allows, hold for sedation Please note that Percocet contains Tylenol (acetaminophen). Maximum daily dose of Tylenol is 4000 mg from all sources. Antibiotics are required prior to any dental work. Hold your hydrochlorothiazide until you follow up with your primary care doctor. Repeat BMP in 1 week at the outpatient lab FOLLOW UP: Follow up with [Jeremy] Within 10-14 days, call for appointment Please call our office with any questions or concerns ([phone]) Rx [facility]
--- NOTE | 2019-02-27 01:34 | RADMED ---
CC: Dr. Pratima Luna.* RADIATION ONCOLOGY CONSULTATION NOTE: DATE OF SERVICE: 02/26/19 - Inpatient, ROOM #[id number] REFERRING PHYSICIAN: Dr. Nita Luna. DIAGNOSIS: Heterotopic ossification prophylaxis. HISTORY OF PRESENT ILLNESS: Mr. Blanc is a 53-year-old gentleman with history of osteoarthritis and prior right hip replacement and subsequent formation of heterotopic ossification. On 02/25/19, he underwent left total knee hip arthroplasty for severe degenerative osteoarthritis of the left hip, and is referred for heterotopic ossification prophylaxis. He has good pain control, and an uncomplicated postoperative course so far. PAST MEDICAL HISTORY: Osteoarthritis, as in history of present illness, hypertension, hyperlipidemia. MEDICATIONS: 1. Amlodipine. 2. Hydrochlorothiazide. ALLERGIES: PENICILLIN. FAMILY HISTORY: Noncontributory. SOCIAL HISTORY: Nonsmoker. REVIEW OF SYSTEMS: As in the history of present illness, otherwise no significant associated symptoms reported on complete review. PHYSICAL EXAMINATION: Temperature 97.3, pulse rate 88, respiratory rate 18, oxygen saturation 96% on room air, blood pressure 103/60. General: He is awake , alert, and oriented in no acute distress. Normocephalic and atraumatic. Sclerae are anicteric. Neck: Supple, full range of motion, midline trachea. No mass palpable in the neck or thyroid. Lungs with symmetric air entry bilaterally. Cardiovascular: S1 and S2 regular. Abdomen is soft and nontender. No mass. No organomegaly. Extremities: Dressing in place around the left hip. No cyanosis or edema. ASSESSMENT AND PLAN: Abdulaziz Blanc is a 53-year-old gentleman with osteoarthritis and prior right hip replacement with subsequent formation of heterotropic bone impacting his recovery. Yesterday he underwent uncomplicated left total hip arthroplasty and is referred for heterotopic ossification prophylaxis with radiation therapy. I explained the logistics and rationale for this treatment, risks, benefits, and alternatives as well as the acute and long goods drier frequent and uncommon toxicities. I did answer the patient's questions to the best of my ability. He is inclined to proceed with radiation therapy for heterotopic ossification prophylaxis. As discussed, he did sign informed consent. He will undergo subsequent CT stimulation today to facilitate treatment planning. For his situation, I recommend 700 cGy in a single fraction planned to be delivered later today. Thank you for giving me the opportunity to participate in the care of this very pleasant gentleman. [id number]/[facility] #: [id number] SUNITA
[2019-02-27] MEDS ORDERED: Bisacodyl SUPP* 10 MG SUPP PR PRN (14:37)
== END 2019-02-26 18:30 | disposition home or self-care (01) | DRG 301 ==
LOC: AA 08:43 → SSU 16:17
PROVIDERS: ADMIT Orthopaedic Surgery Adult Reconstructive Orthopaedic Surgery; ATTEND Orthopaedic Surgery Adult Reconstructive Orthopaedic Surgery
PROC: 0SRB04A Replacement of Left Hip Joint with Ceramic on Polyethylene Synthetic Substitute, Uncemented, Open Approach (ICD-10-PCS; principal; 2019-02-25 11:45)
PROC: DWY Radiation Therapy, Anatomical Regions, Other Radiation (ICD-10-PCS; 2019-02-26)
DX: M16.12 Unilateral primary osteoarthritis, left hip (principal); E87.1 Hypo-osmolality and hyponatremia; Z68.41 Body mass index [BMI] 40.0-44.9, adult; I10 Essential (primary) hypertension; E78.5 Hyperlipidemia, unspecified; E66.01 Morbid (severe) obesity due to excess calories; E87.6 Hypokalemia; G47.30 Sleep apnea, unspecified; E03.9 Hypothyroidism, unspecified; M54.31 Sciatica, right side; G89.29 Other chronic pain; Z96.641 Presence of right artificial hip joint; E78.00 Pure hypercholesterolemia, unspecified; Z88.0 Allergy status to penicillin; Z79.899 Other long term (current) drug therapy
CPT/HCPCS: 36415; 72170; 77014; 80048; 85014; 85018; 85049; 86850; 86900; 86901; 88304; 88311; A9270-GY; C1713; C1776; J0690; J2250; J2704; J3010; J3490